=== PATIENT | male | born 1975 | race American Indian/Alaskan Native ===

== ENCOUNTER 2018-02-08 20:14 | Emergency (ER) | payer SELFPAY ==
[2018-02-08] MEDS ORDERED: TORADOL ONE (21:47)
[2018-02-08] MEDS ORDERED: NACL 0.9% 1000 ML 1,000 ML IV ONE (21:47)
[2018-02-08] MEDS ORDERED: TORADOL IV ONE (21:59)
[2018-02-08 22:24] LABS: Basophils % (Auto) 0.3 % (0.0-1.8); Eosinophils # (Auto) 0.1 K/mm3 (0.0-0.4); Eosinophils % (Auto) 0.4 % (0.0-4.3); Hematocrit 42.9 % (35.5-45.6); Hemoglobin 14.9 gm/dl (11.8-15.2); Lymphocytes # (Auto) 1.3 K/mm3 (1.2-5.4); Lymphocytes % (Auto) 9.3 % (13.4-35.0); Mean Corpuscular HGB Conc 35 % (32-34); Mean Corpuscular Hemoglobin 33 pg (28-32); Mean Corpuscular Volume 95 fl (84-94); Monocytes # (Auto) 1.1 K/mm3 (0.0-0.8); Monocytes % (Auto) 8.1 % (0.0-7.3); Platelet Count 309 K/mm3 (140-440); Red Blood Count 4.54 M/mm3 (3.65-5.03); Red Cell Distribution Width 13.4 % (13.2-15.2)
[2018-02-08 22:30] LABS: Bilirubin,Urine NEG (Negative); Blood,Urine MOD (Negative); Color,Urine Yellow (Yellow); Mucus,Urine FEW /HPF; Urobilinogen,Urine < 2.0 mg/dL (<2.0)
[2018-02-08 22:44] LABS: Alanine Aminotransferase 27 units/L (7-56); Albumin 4.1 g/dL (3.9-5); BUN/Creatinine Ratio 17; Blood Urea Nitrogen 15 mg/dL (9-20); Hemolysis Index 10
--- NOTE | 2018-02-09 | Emergency Department Report ---
ED Abdominal Pain HPI - General Chief Complaint: Abdominal Pain Stated Complaint: SIDE PAIN Time Seen by Provider: 02/08/18 23:56 Source: patient Mode of arrival: Ambulatory Limitations: No Limitations - History of Present Illness Initial Comments: Patient is a 42-year-old male that presents emergency room with left flank pain that started this morning and is worsening. Patient states that the pain is a 6 out of 10 at this moment. However when he arrived in the ER was 10 out of 10. Patient states the pain is better due to the medications given. Patient states the pain is better with rest and worse with movement and palpation. Patient denies fever/chills. Patient denies nausea and vomiting. MD Complaint: abdominal pain -: Sudden Location: L flank Radiation: none Migration to: no migration Severity scale (0 -10): 10 Quality: stabbing Improves With: rest Worsens With: movement Associated Symptoms: denies other symptoms. denies: nausea, vomiting, diarrhea , fever, chills, constipation, dysuria, hematemesis, hematochezia, melena, hematuria, anorexia - Related Data Previous Rx's Medication Instructions Recorded Last Taken Type HYDROcodone/APAP 5-325 [[place] 1 each PO Q4HR PRN #15 tablet 02/09/18 Unknown Rx 5/325] Tamsulosin [Flomax] 0.4 mg PO ONCE 10 Days #10 capsule 02/09/18 Unknown Rx Allergies Allergy/AdvReac Type Severity Reaction Status Date / Time No Known Allergies Allergy Unverified 02/08/18 21:47 ED Review of Systems ROS: Stated complaint: SIDE PAIN Other details as noted in HPI Constitutional: denies: chills, fever Eyes: denies: eye pain, eye discharge, vision change ENT: denies: ear pain, throat pain Respiratory: denies: cough, shortness of breath, wheezing Cardiovascular: denies: chest pain, palpitations Endocrine: no symptoms reported Gastrointestinal: abdominal pain. denies: nausea, diarrhea Genitourinary: denies: urgency, dysuria Musculoskeletal: denies: back pain, joint swelling, arthralgia Skin: denies: rash, lesions Neurological: denies: headache, weakness, paresthesias Psychiatric: denies: anxiety, depression Hematological/Lymphatic: denies: easy bleeding, easy bruising ED Past Medical Hx - Past Medical History Previous Medical History?: No - Surgical History Past Surgical History?: No - Family History Family history: no significant - Social History Smoking Status: Never Smoker Substance Use Type: None - Medications Home Medications: Home Medications Medication Instructions Recorded Confirmed Last Taken Type HYDROcodone/APAP 5-325 [[place] 1 each PO Q4HR PRN #15 tablet 02/09/18 Unknown Rx 5/325] Tamsulosin [Flomax] 0.4 mg PO ONCE 10 Days #10 capsule 02/09/18 Unknown Rx ED Physical Exam - General Limitations: No Limitations General appearance: alert, in no apparent distress - Head Head exam: Present: atraumatic, normocephalic - Eye Eye exam: Present: normal appearance - ENT ENT exam: Present: mucous membranes moist - Neck Neck exam: Present: normal inspection - Respiratory Respiratory exam: Present: normal lung sounds bilaterally. Absent: respiratory distress - Cardiovascular Cardiovascular Exam: Present: regular rate, normal rhythm. Absent: systolic murmur, diastolic murmur, rubs, gallop - GI/Abdominal GI/Abdominal exam: Present: soft, tenderness (left flank tenderness and CVA tenderness), normal bowel sounds - Rectal Rectal exam: Present: deferred - Extremities Exam Extremities exam: Present: normal inspection - Back Exam Back exam: Present: normal inspection - Neurological Exam Neurological exam: Present: alert, oriented X3 - Psychiatric Psychiatric exam: Present: normal affect, normal mood - Skin Skin exam: Present: warm, dry, intact, normal color. Absent: rash ED Course Vital Signs 02/08/18 02/08/18 02/09/18 21:15 21:42 06:04 Temperature 98.3 F 98.3 F 99 F Pulse Rate 79 85 88 Respiratory 14 18 16 Rate Blood Pressure 132/78 132/78 Blood Pressure 120/78 [Left] O2 Sat by Pulse 99 99 99 Oximetry - Reevaluation(s) Reevaluation #1: Patient resting in bed comfortably. CT scan is pending 02/09/18 03:09 Reevaluation #2: CT abdomen still pending 02/09/18 04:35 Reevaluation #3: CT scan shows a 2 mm stone in the left ureter causing moderate left hydronephrosis. Incidental finding of a 3 mm stone in the right kidney without obstruction. Patient is stable for discharge. Patient given all results. Discussed plan of care with patient. Patient instructed to follow up with primary care and a urologist in 3-5 days. Patient instructed to take medications as directed. 02/09/18 05:35 ED Medical Decision Making - Lab Data Result diagrams: 02/08/18 22:04 02/08/18 22:04 - Radiology Data Radiology results: report reviewed CT report reviewed. CT positive for a 2 mm stone in the left kidney with moderate left hydronephrosis. - Medical Decision Making She is a 42-year-old male presents emergency room with left flank pain. Patient found to have a left kidney stone with hydronephrosis. Patient is stable for discharge. Patient will be discharged home with discharge instructions. Patient given strict return to ER instructions as well. - Differential Diagnosis renal stone flank pain. gastritis. gastroenteritis Critical care attestation.: If time is entered above; I have spent that time in minutes in the direct care of this critically ill patient, excluding procedure time. ED Disposition Clinical Impression: Flank pain, Calculus of left kidney Disposition: - TO HOME OR SELFCARE Is pt being admited?: No Does the pt Need Aspirin: No Condition: Stable Instructions: Kidney Stones (ED), How to Strain Your Urine (ED), Flank Pain (ED ) Additional Instructions: Patient to follow up with primary care neurologist in 3-5 days. Patient to increase water. Patient to take meds as directed. Patient to return to ER if condition worsens. Patient to rest. Patient to be off work until Sunday morning. Patient to take Tylenol or ibuprofen when necessary for pain Prescriptions: HYDROcodone/APAP 5-325 [[place] 5/325] 1 each PO Q4HR PRN #15 tablet PRN Reason: Pain Tamsulosin [Flomax] 0.4 mg PO ONCE 10 Days #10 capsule Referrals: PRIMARY CARE, [Primary Care Provider] - 3-5 Days Forms: Work/School Release Form(ED) Time of Disposition: 05:40
--- NOTE | 2018-02-09 05:23 | Cat Scan Report ---
FINAL REPORT PROCEDURE: CT ABDOMEN PELVIS WO CON TECHNIQUE: Computerized axial tomography of the abdomen and pelvis was performed without intravenous contrast. This study is performed without intravascular contrast material and its sensitivity for abdominal and pelvic pathology, including neoplasms, inflammation, abscess, free fluid, thrombosis, arterial dissection and infarction, is reduced compared with a contrast enhanced study. HISTORY: abd pain/flank pain COMPARISON: No prior studies are available for comparison. FINDINGS: Visualized lower thorax: No significant abnormality. Liver: Normal size and attenuation. Spleen: Normal size and attenuation. Gallbladder and biliary system: Normal. Pancreas: Normal. Adrenals: Normal. Kidneys: There is a 2 millimeter stone in the distal left ureter causing moderate left hydronephrosis and hydroureter. There is a 3 millimeter stone lower pole the right kidney without obstruction.. GI tract: There is no bowel obstruction, colitis or enteritis. The appendix is normal.. Lymph nodes and mesentery: Normal. Vasculature: Normal. Bladder: Normal. Reproductive organs: Normal. Peritoneum: There is no ascites or free air, abscess or adenopathy.. Musculoskeletal structures: No significant abnormality. Other: None. IMPRESSION: There is a 2 millimeter stone in the distal left ureter causing moderate left hydronephrosis and hydroureter. There is a 3 millimeter stone lower pole the right kidney without obstruction.. There is no bowel obstruction, colitis or enteritis. The appendix is normal.. There is no ascites or free air, abscess or adenopathy.. .
[2018-02-09] MEDS ORDERED: FLOMAX PO ONE (05:34)
[2018-02-09 06:05] VITALS: BP 120/78
== END 2018-02-09 06:11 | disposition home or self-care (01) ==
LOC: ED 20:14
DX: N20.0 Calculus of kidney (principal)
CPT/HCPCS: 36415; 74176; 80053; 81001; 85025; 96374; 99284; J1885

== ENCOUNTER 2020-08-16 04:20 | Observation (INO) | payer SELFPAY ==
--- NOTE | 2020-08-16 04:31 | Emergency Department Report ---
Blank Doc - Documentation Documentation: This is a 45-year-old male that presents with dark-colored stool with blood and abdominal pain. Patient stated that last week he was hit by a forklift his abdomen area. 1- This initial assessment/diagnostic orders/clinical plan/ treatment(s) is/are subject to change based on pt's health status, clinical progression and re- assessment by fellow clinical providers in the ED. Further treatment and workup at subsequent clinical provers discretion. Patient/guardians urged not to elope from ED as their condition may be serious if not clinically assessed and managed. 2-labs 3-UA
[2020-08-16 05:38] LABS: Basophils % (Auto) 0.3 % (0.0-1.8); Eosinophils # (Auto) 0.2 K/mm3 (0.0-0.4); Eosinophils % (Auto) 3.1 % (0.0-4.3); Hematocrit 43.6 % (35.5-45.6); Hemoglobin 14.9 gm/dl (11.8-15.2); Lymphocytes # (Auto) 2.4 K/mm3 (1.2-5.4); Lymphocytes % (Auto) 34.6 % (13.4-35.0); Mean Corpuscular HGB Conc 34 % (32-34); Mean Corpuscular Volume 95 fl (84-94); Monocytes # (Auto) 0.6 K/mm3 (0.0-0.8); Monocytes % (Auto) 8.8 % (0.0-7.3); Platelet Count 292 K/mm3 (140-440); Red Blood Count 4.58 M/mm3 (3.65-5.03); Red Cell Distribution Width 13.2 % (13.2-15.2)
[2020-08-16 06:01] LABS: Bilirubin,Urine NEG (Negative); Blood,Urine NEG (Negative); Color,Urine Straw (Yellow); Mucus,Urine FEW /HPF; Protein,Urine <15 mg/dL mg/dL (Negative); Urobilinogen,Urine < 2.0 mg/dL (<2.0)
[2020-08-16 06:02] LABS: Alanine Aminotransferase 36 units/L (7-56); Albumin 3.7 g/dL (3.9-5); Blood Urea Nitrogen 11 mg/dL (9-20); Hemolysis Index 18
[2020-08-16 06:06] LABS: BUN/Creatinine Ratio 16
--- NOTE | 2020-08-16 11:29 | Emergency Department Report ---
ED Abdominal Pain HPI - General Chief Complaint: Abdominal Pain Stated Complaint: BLOOD IN STOOL/HURTS BETWEEN LEGS Time Seen by Provider: 08/16/20 04:30 Source: patient Mode of arrival: Ambulatory Limitations: No Limitations - History of Present Illness Initial Comments: Patient is a 45-year-old male presents emergency room with complaints of abdominal pain that has been occurring since 08/08/2020. He states that he was involved in an incident at work. He states that he got pinned between a table in a wall as a forklift hit the table. He states since then he has had abdominal pain which radiates to his back. He states he has been seen in another emergency room in [place] and was told that everything was normal. He states he then saw a Worker's Comp. doctor and was advised everything was normal. He presents today due to seeing blood in his stool twice yesterday and states one episode he had large clots. He denies any nausea, vomiting, hematemesis, numbness, weakness, bowel or bladder incontinence. No past medical history. No allergies medic ations. - Related Data Previous Rx's Medication Instructions Recorded Last Taken Type HYDROcodone/APAP 5-325 [[place] 1 each PO Q4HR PRN #15 tablet 02/09/18 Unknown Rx 5/325] Tamsulosin [Flomax] 0.4 mg PO ONCE 10 Days #10 capsule 02/09/18 Unknown Rx Allergies Allergy/AdvReac Type Severity Reaction Status Date / Time No Known Allergies Allergy Unverified 02/08/18 21:47 ED Review of Systems ROS: Stated complaint: BLOOD IN STOOL/HURTS BETWEEN LEGS Other details as noted in HPI Comment: All other systems reviewed and negative ED Past Medical Hx - Past Medical History Previous Medical History?: No - Surgical History Past Surgical History?: No - Social History Smoking Status: Never Smoker Substance Use Type: None - Medications Home Medications: Home Medications Medication Instructions Recorded Confirmed Last Taken Type HYDROcodone/APAP 5-325 [[place] 1 each PO Q4HR PRN #15 tablet 02/09/18 Unknown Rx 5/325] Tamsulosin [Flomax] 0.4 mg PO ONCE 10 Days #10 capsule 02/09/18 Unknown Rx ED Physical Exam - General Limitations: No Limitations General appearance: alert, in no apparent distress - Head Head exam: Present: atraumatic, normocephalic - Eye Eye exam: Present: normal appearance - ENT ENT exam: Present: mucous membranes moist - Neck Neck exam: Present: normal inspection, full ROM. Absent: tenderness - Respiratory Respiratory exam: Present: normal lung sounds bilaterally. Absent: respiratory distress, wheezes, rales, rhonchi, stridor, chest wall tenderness, accessory muscle use, decreased breath sounds, prolonged expiratory - Cardiovascular Cardiovascular Exam: Present: regular rate, normal rhythm, normal heart sounds. Absent: systolic murmur, diastolic murmur, rubs, gallop - GI/Abdominal GI/Abdominal exam: Present: soft, tenderness (mild generalized abd pain, no crepitus, no ecchymosis), normal bowel sounds. 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 Absent: paraspinal tenderness, vertebral tenderness - Neurological Exam Neurological exam: Present: alert, oriented X3, CN II-XII intact, normal gait. Absent: motor sensory deficit - Psychiatric Psychiatric exam: Present: normal affect, normal mood - Skin Skin exam: Present: warm, dry, intact ED Course Vital Signs 08/16/20 16:31 Temperature 98.0 F Pulse Rate 71 Respiratory 16 Rate Blood Pressure 151/114 O2 Sat by Pulse 100 Oximetry - Consultations Consultation #1: 08/16/20 13:[address] Ori Michael, GI regarding patient history exam and studies, he advised to admit to hospitalist service and he will consult on patient 08/16/20 13:[address] Snyder, ER attending who agrees with admission 08/16/20 14:[address] Ulloa, he is going to evaluate patient 08/16/20 15:13 Dr. Ulloa, hospitalist will accept and resume care of patient, will admit to hospitalist service ED Medical Decision Making - Lab Data Result diagrams: 08/16/20 05:02 08/16/20 05:02 Lab Results 08/16/20 08/16/20 08/16/20 Range/Units 05:02 05:02 05:16 WBC 6.8 (4.5-11.0) K/mm3 RBC 4.58 (3.65-5.03) M/mm3 Hgb 14.9 (11.8-15.2) gm/dl Hct 43.6 (35.5-45.6) % MCV 95 H (84-94) fl MCH 33 H (28-32) pg MCHC 34 (32-34) % RDW 13.2 (13.2-15.2) % Plt Count 292 (140-440) K/mm3 Lymph % (Auto) 34.6 (13.4-35.0) % [place]age % (Auto) 8.8 H (0.0-7.3) % Eos % (Auto) 3.1 (0.0-4.3) % Baso % (Auto) 0.3 (0.0-1.8) % Lymph # (Auto) 2.4 (1.2-5.4) K/mm3 [place] # (Auto) 0.6 (0.0-0.8) K/mm3 Eos # (Auto) 0.2 (0.0-0.4) K/mm3 Baso # (Auto) 0.0 (0.0-0.1) K/mm3 Seg Neutrophils % 53.2 (40.0-70.0) % Seg Neutrophils # 3.6 (1.8-7.7) K/mm3 Sodium 138 (137-145) mmol/L Potassium 4.7 (3.6-5.0) mmol/L Chloride 106.1 (98-107) mmol/L Carbon Dioxide 23 (22-30) mmol/L Anion Gap 14 mmol/L BUN 11 (9-20) mg/dL Creatinine 0.7 L (0.8-1.3) mg/dL Estimated GFR > 60 ml/min BUN/Creatinine Ratio 16 % Glucose 85 (75-100) mg/dL Calcium 9.0 (8.4-10.2) mg/dL Total Bilirubin 0.20 (0.1-1.2) mg/dL AST 29 (5-40) units/L ALT 36 (7-56) units/L Alkaline Phosphatase 79 (35-129) units/L Total Protein 6.4 (6.3-8.2) g/dL Albumin 3.7 L (3.9-5) g/dL Albumin/Globulin Ratio 1.4 % Lipase 24 (13-60) units/L Urine Color Straw (Yellow) Urine Turbidity Clear (Clear) Urine pH 5.0 (5.0-7.0) Ur Specific Normal 1.015 (1.003-1.030) Urine Protein <15 mg/dl (Negative) mg/dL Urine Glucose (UA) Neg (Negative) mg/dL Urine Ketones Neg (Negative) mg/dL Urine Blood Neg (Negative) Urine Nitrite Neg (Negative) Urine Bilirubin Neg (Negative) Urine Urobilinogen < 2.0 (<2.0) mg/dL Ur Leukocyte Esterase Neg (Negative) Urine WBC (Auto) 2.0 (0.0-6.0) /HPF Urine RBC (Auto) 1.0 (0.0-6.0) /HPF Urine Mucus Few /HPF - Radiology Data Radiology results: report reviewed CT abd pelvis with IV contrast: no significant abnormality - Medical Decision Making Patient is a 45-year-old male presents emergency room with complaints of abdominal pain that has been occurring since 08/08/2020. He states that he was involved in an incident at work. He states that he got pinned between a table in a wall as a forklift hit the table. He states since then he has had abdominal pain which radiates to his back. He states he has been seen in another emergency room in [place] and was told that everything was normal. He states he then saw a Worker's Comp. doctor and was advised everything was normal. He presents today due to seeing blood in his stool twice yesterday and states one episode he had large clots. He denies any nausea, vomiting, hematemesis, numbness, weakness, bowel or bladder incontinence. No past medical history. No allergies medications. Initial vitals with elevated blood pressure which improved upon repeat. 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 stool is melanotic. labs are normal. CT abd pelvis with IV contrast: no significant abnormality. Spoke with Dr. Ori Michael, GI regarding patient history exam and studies, he advised to admit to hospitalist service and he will consult on patient. Discussed case with Dr. Snyder, ER attending who agrees with admission. Dr. Ulloa, hospitalist will accept and resume care of patient, will admit to hospitalist service. - Differential Diagnosis trauma, GI bleed, spleen/liver laceration, erosive PUD Critical care attestation.: If time is entered above; I have spent that time in minutes in the direct care of this critically ill patient, excluding procedure time. ED Disposition Clinical Impression: GI bleed Qualifiers: GI bleed type/associated pathology: melena Qualified Code(s): K92.1 - Melena Abdominal pain Qualifiers: Abdominal location: generalized Qualified Code(s): R10.84 - Generalized abdominal pain Disposition: DC-09 OP ADMIT IP TO THIS HOSP Is pt being admited?: Yes Does the pt Need Aspirin: No Condition: Fair Time of Disposition: 14:01
--- NOTE | 2020-08-16 12:46 | Cat Scan Report ---
CT ABDOMEN AND PELVIS WITH CONTRAST HISTORY: Abdominal pain, bloody stool COMPARISON: Prior CT 02/09/2018 TECHNIQUE: Routine abdominal and pelvic CT exam performed following intravenous contrast administrat ion.. All CT scans at this location are performed using CT dose reduction for ALARA by means of autom ated exposure control. FINDINGS: CT ABDOMEN: Lung Bases: No significant abnormality. Liver: No significant abnormality. Biliary: No significant abnormality. Spleen: No significant abnormality. Unenlarged. Pancreas: No significant abnormality. Adrenals: No significant abnormality. Kidneys: No significant abnormality. Lymphatics: No lymphadenopathy. Vasculature: No significant abnormality. Bowel/Peritoneum: No significant abnormality. No free air. No free fluid. Normal appendix. CT PELVIC: : No significant abnormality. Lymphatics: No lymphadenopathy. Osseous Structures: No aggressive appearing osseous lesions. Additional Findings: None IMPRESSION: 1. No significant abnormality. Signer Name: Izaiah Mcclendon MD Signed: 08/16/2020 12:42 PM Workstation Name: [id number]
[2020-08-16] MEDS ORDERED: ACETAMINOPHEN 325 MG TAB PO PRN ×2 (16:12→20:43)
[2020-08-16] MEDS ORDERED: ONDANSETRON 4 MG/2 ML INJ IV PRN ×2 (16:12→20:43)
--- NOTE | 2020-08-16 20:41 | Progress Note ---
Assessment and Plan - Patient Problems (1) GI bleed Current Visit: Yes Status: Acute Qualifiers: GI bleed type/associated pathology: melena Qualified Code(s): K92.1 - Melena Plan to address problem: Patient probably has peptic ulcer disease/severe gastritis Take Motrin. Patient needs GI consult. IV Protonix drip in the meantime. Check hemoglobin and hematocrit every 8 hours. (2) Abdominal pain Current Visit: Yes Status: Acute Qualifiers: Abdominal location: generalized Qualified Code(s): R10.84 - Generalized abdominal pain Plan to address problem: Improved Secondary to trauma No internal organ laceration or bleeding (3) DVT prophylaxis Current Visit: Yes Status: Acute Plan to address problem: On SCDs and GI prophylaxis Subjective Date of service: 08/16/20 Principal diagnosis: Black stools for 1 day Interval history: 45-year-old with no significant past medical history comes in for abdominal pain since 08/08/2020. Patient patient has dark stools since yesterday. Patient was hit by a forklift on 08/08/2020 when he was checked for any abdominal injury. No abdominal injury. No patient has been having black stools since yesterday. Patient took 2 Motrin's prior to the lab. No lightheadedness no syncope. Occult blood was positive on the stool check. - Past Medical History Previous Medical History?: No - Surgical History Past Surgical History?: No - Social History Smoking Status: Never Smoker Substance Use Type: None - Medications Home Medications: Home Medications Medication Instructions Recorded Confirmed Last Taken Type HYDROcodone/APAP 5-325 [[place] 1 each PO Q4HR PRN #15 tablet 02/09/18 Unknown Rx 5/325] Tamsulosin [Flomax] 0.4 mg PO ONCE 10 Days #10 capsule 02/09/18 Unknown Rx Review of Systems ROS: Constitutional no weight loss or weight gain no fever or chills HEENT no sore throat no post nasal drip no diplopia Neck no neck stiffness no lymph gland enlargement Chest and lungs no shortness of breath cough or wheezing CVS no chest pain no diaphoresis no palpitations GI black tarry stools Musculoskeletal system no muscle pains no joint pains 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 Skin no rash no itching Psychiatric no depression no homicidal or suicidal tendencies Hematologic no lymphedema or bruising Endocrine no polydipsia no polyuria no cold intolerance no heat intolerance Objective - Constitutional Vitals: Vital Signs - 12hr 08/16/20 08/16/20 16:31 19:29 Temperature 98.0 F 98.0 F Pulse Rate 71 74 Respiratory 16 16 Rate Blood Pressure 151/114 130/77 O2 Sat by Pulse 100 98 Oximetry General appearance: Present: no acute distress, well-nourished - EENT Eyes: PERRL, EOM intact ENT: hearing intact, clear oral mucosa Ears: bilateral: normal - Neck Neck: supple, normal ROM - Respiratory Respiratory effort: normal Respiratory: bilateral: CTA - Breasts Breasts: normal - Cardiovascular Heart rate: 78 Rhythm: regular Heart Sounds: Present: S1 & S2. Absent: gallop, rub Extremities: pulses intact, No edema, normal color, Full ROM - Gastrointestinal General gastrointestinal: Present: soft, non-tender, non-distended, normal bowel sounds - Genitourinary Male genitourinary: normal - Integumentary Integumentary: clear, warm, dry - Musculoskeletal Musculoskeletal: 1, strength equal bilaterally - Neurologic Neurologic: moves all extremities - Psychiatric Psychiatric: memory intact, appropriate mood/affect, intact judgment & insight - Labs CBC & Chem 7: 08/16/20 21:43 08/16/20 05:02 Labs: Abnormal lab results 08/16/20 08/16/20 Range/Units 05:02 05:02 MCV 95 H (84-94) fl MCH 33 H (28-32) pg [place] % (Auto) 8.8 H (0.0-7.3) % Creatinine 0.7 L (0.8-1.3) mg/dL Albumin 3.7 L (3.9-5) g/dL
[2020-08-16] MEDS ORDERED: METOCLOPRAMIDE 10 MG/2 ML INJ IV PRN (20:43)
[2020-08-16] MEDS ORDERED: HYDROmorphone 1 MG/1 ML INJ IV PRN (20:43)
[2020-08-16] MEDS ORDERED: MORPHINE 2 MG/1 ML INJ IV PRN (20:43)
[2020-08-16] MEDS: D5W/0.9% NACL 1,000 ML IV SCH (21:31)
[2020-08-16] MEDS: PANTOPRAZOLE 80 MG in SODIUM CHLORIDE 0.9% 100 ML IV SCH (21:31)
[2020-08-16 21:55] LABS: Hematocrit 44.1 % (35.5-45.6); Hemoglobin 14.8 gm/dl (11.8-15.2)
[2020-08-17] MEDS: PANTOPRAZOLE 80 MG in SODIUM CHLORIDE 0.9% 100 ML IV SCH (07:30)
[2020-08-17] MEDS: D5W/0.9% NACL 1,000 ML IV SCH (07:31)
[2020-08-17 08:23] LABS: Basophils % (Auto) 0.3 % (0.0-1.8); Eosinophils # (Auto) 0.2 K/mm3 (0.0-0.4); Hematocrit 44.1 % (35.5-45.6); Hemoglobin 14.8 gm/dl (11.8-15.2); Lymphocytes # (Auto) 1.7 K/mm3 (1.2-5.4); Lymphocytes % (Auto) 31.1 % (13.4-35.0); Mean Corpuscular HGB Conc 34 % (32-34); Mean Corpuscular Volume 96 fl (84-94); Monocytes # (Auto) 0.5 K/mm3 (0.0-0.8); Monocytes % (Auto) 8.8 % (0.0-7.3); Platelet Count 265 K/mm3 (140-440); Red Blood Count 4.58 M/mm3 (3.65-5.03); Red Cell Distribution Width 13.3 % (13.2-15.2)
[2020-08-17 08:41] LABS: Alanine Aminotransferase 36 units/L (7-56); Albumin 3.4 g/dL (3.9-5); Blood Urea Nitrogen 8 mg/dL (9-20); Calcium 8.8 mg/dL (8.4-10.2); Hemolysis Index 7
[2020-08-17 08:45] LABS: BUN/Creatinine Ratio 11
[2020-08-17] MEDS ORDERED: SODIUM CHLORIDE 0.9% 1000 ML 1,000 ML IV SCH (10:00)
--- NOTE | 2020-08-17 11:53 | Anesthesia Day of Surgery ---
Anesthesia Day of Surgery - Day of Surgery Patient Examined: Yes Patient H&P Reviewed: Yes Patient is NPO: Yes
--- NOTE | 2020-08-17 11:53 | Anesthesia Consultation ---
Anesthesia Consult and Med Hx Date of service: 08/17/20 - Airway Anesthetic Teeth Evaluation: Good ROM Head & Neck: Adequate Mental/Hyoid Distance: Adequate Mallampati Class: Class II Intubation Access Assessment: Probably Good - Pre-Operative Health Status ASA Pre-Surgery Classification: ASA2 Proposed Anesthetic Plan: MAC - Gastrointestinal Hx Ulcer: Yes (blood in stool) - Endocrine Hx Renal Disease: No (BPH)
[2020-08-17] MEDS ORDERED: propofoL 200 MG/20 ML VIAL IV ONE (12:30)
--- NOTE | 2020-08-17 12:54 | Post Operative Note ---
Pre-op diagnosis: gi bleed Post-op diagnosis: same Findings: EGD: small hiatal hernia - 8-9 mm white based ulcer antrum - mild gastritis (bx's) - negative other Procedure: egd w/ bx Anesthesia: MAC Surgeon: CEDRIC CARRASQUILLO Estimated blood loss: none Pathology: list Specimen disposition: to lab Condition: stable Disposition: floor
--- NOTE | 2020-08-17 13:01 | Operative Report ---
INDICATION: 1. Rectal bleeding. 2. Dark stools. MEDICATIONS: Propofol per [employer]. COMPLICATIONS: None. DESCRIPTION OF PROCEDURE: The patient brought to procedure suite. The patient had the procedure, discussed with him at length. All risks, complications, and benefits discussed after which the patient signed for the procedure performed. The patient was placed in left lateral decubitus position. Mouth block placed in the patient's oral cavity. After adequate sedation medication as above, endoscope placed in mouth and brought to level of the second portion of duodenum. Retroflexion view performed. The patient's vital signs remained stable throughout the procedure. FINDINGS: Small hiatal hernia at GE junction 38 cm from the gums. Esophagus otherwise appeared to be normal. There was 8-9 mm white base ulcer noted in the gastric antrum without significant bleeding stigmata. Biopsies were taken of the antrum and sent to pathology. Remaining stomach otherwise appeared to be normal. Duodenum appeared to be normal. Retroflexion view performed in the stomach showed no other pathology other than noted above. The patient tolerated the procedure well. No complications during the procedure. IMPRESSION: 1. Hiatal hernia. 2. Otherwise, normal esophagus. 3. Single ulcer with signs of healing noted with no bleeding stigmata. 4. Gastritis, biopsies performed. 5. Otherwise, normal EGD. RECOMMENDATIONS: 1. Follow up biopsy results. 2. If H. pylori positive, treat. 3. PPI daily. 4. Advance diet. 5. Okay to discharge from GI standpoint. Follow up as an outpatient. JOB# [id number] [facility]
--- NOTE | 2020-08-17 13:03 | Consultation ---
REFERRING PHYSICIAN: Torito Ulola MD INDICATIONS: 1. Anemia. 2. Abdominal pain. HISTORY OF PRESENT ILLNESS: The patient is a 45-year-old black male being seen by GI for abdominal pain and black stools. The patient reports that he recently had a job-related incident where he had a forklift hit a table that hit him in the abdominal area. He reports this occurred in [place]. The patient reports he had evaluation including a CT scan, which showed no pathology. The patient reports he had been taking some NSAIDs over recent days. The patient reports he had 2 bouts of bloody stools yesterday. He reports dark stools. Denies any hematemesis. Denies any weight loss. The patient subsequently came to the Emergency Room where he had a CT scan, which was negative and subsequently admitted and GI consulted. Again, of note, since his accident recently, the patient has been taking NSAIDs p.r.n. PAST MEDICAL HISTORY: Negative. MEDICATIONS: See chart. ALLERGIES: No known drug allergies. SOCIAL HISTORY: Denies alcohol, tobacco or drug abuse. FAMILY HISTORY: Negative for colon cancer, IBD, or liver disease. REVIEW OF SYSTEMS: GENERAL: Reports some weakness. HEENT: No visual complaints or tinnitus. PULMONARY: No shortness of breath, cough or chest pain. GASTROINTESTINAL: Reports black stools. All points of 13-point review of systems otherwise negative. PHYSICAL EXAMINATION: VITAL SIGNS: Temperature of 98.1, pulse 65, respiration 18, and blood pressure 145/90. GENERAL: Fairly nourished with no acute distress. HEENT: Pupils are equal, round and reactive. PULMONARY: Clear. CARDIOVASCULAR: Regular rhythm. Normal S1, S2. ABDOMEN: Palpable, soft. SKIN: No obvious rashes. LABORATORY DATA: Pertinent for white count of 6.8, hemoglobin and hematocrit of 14.9 and 43.6, platelet count of 292. Chem-7 within normal limits. LFTs within normal limits. CT scan of abdomen and pelvis with contrast performed on 08/16/2020 showed no significant GI pathology. ASSESSMENT AND PLAN: A 45-year-old black male with a recent accident when he had some trauma after a forklift hit a table that hit him, now presents after taking NSAIDs recently with some dark stools. The patient's hemoglobin and hematocrit is stable. We do want to rule out upper GI pathology. PLAN: 1. PPI daily. 2. Follow hematocrit and transfuse as needed. 3. Plan EGD in a.m. JOB# [id number] [facility] MTDD
--- NOTE | 2020-08-17 13:24 | Post Anesthesia Evaluation ---
- Post Anesthesia Evaluation Patient Participated: Yes Airway Patent: Yes Stable Respiratory Function: Yes Nausea/Vomiting: No Temp > 96.8F: Yes Pain Manageable: Yes Adequeate Hydration: Yes Anesthesia Complications: No
[2020-08-17 13:54] VITALS: BP 128/74
--- NOTE | 2020-08-17 15:30 | Discharge Summary ---
Providers - Providers Date of Admission: 08/16/20 16:12 Attending physician: MAX LOWE MD 08/16/20 13:58 Consult to Physician [CONS] Stat Comment: Consulting Provider: CEDRIC CARRASQUILLO Physician Instructions: Reason For Exam: GI bleed Primary care physician: [employer] Hospitalization Reason for admission: Rectal bleed Condition: Stable Hospital course: 45-year-old with no significant past medical history comes in for abdominal pain since 08/08/2020. Patient patient has dark stools since yesterday. Patient was hit by a forklift on 08/08/2020 when he was checked for any abdominal injury. No abdominal injury. No patient has been having black stools since yesterday. Patient took 2 Motrin's prior to the lab. No lightheadedness no syncope. Occult blood was positive on the stool check. Patient underwent GI colonoscopy and noted, EGD: small hiatal hernia - 8-9 mm white based ulcer antrum - mild gastritis (bx's) - negative other He was cleared By GI for discharge (1) GI bleed (2) Abdominal pain ( 3) Hiatal Hernia (4) Antrum Ulcer Disposition: TO HOME OR SELFCARE Time spent for discharge: 35 mins Core Measure Documentation - Palliative Care Palliative Care/ Comfort Measures: Not Applicable - Core Measures Any of the following diagnoses?: none Exam - Physical Exam Narrative exam: VITAL SIGNS: Reviewed. GENERAL: The patient appears normally developed, Vital signs as documented. HEAD: No signs of head trauma. EYES: Pupils are equal. Extraocular motions intact. EARS: Hearing grossly intact. MOUTH: Oropharynx is normal. NECK: No adenopathy, no JVD. CHEST: Chest with clear breath sounds bilaterally. No wheezes, rales, or rhonchi. CARDIAC: Regular rate and rhythm. S1 and S2, without murmurs, gallops, or rubs. VASCULAR: No Edema. Peripheral pulses normal and equal in all extremities. ABDOMEN: Soft, non tender and non distended. No rebound or guarding, and no masses palpated. Bowel Sounds normal. MUSCULOSKELETAL: Good range of motion of all major joints. Extremities without clubbing, cyanosis or edema. NEUROLOGIC EXAM: Alert and oriented x 3 No focal sensory or strength deficits. Speech normal. Follows commands. PSYCHIATRIC: Mood normal. SKIN: detail exam as documented in skin assessment - Constitutional Vitals: Temp Pulse Resp BP Pulse Ox 97.7 F 79 12 128/74 97 08/17/20 12:55 08/17/20 13:05 08/17/20 13:05 08/17/20 13:05 08/17/20 13:05 Plan Activity: advance as tolerated, fall precautions Diet: low fat Special Instructions: record daily weights, record daily BP diary Additional Instructions: AVOID NSAIDS Follow up with: CEDRIC CARRASQUILLO MD [Staff Physician] - 7 Days PRIMARY CARE, [Primary Care Provider] - 3-5 Days Forms: Work/School Release Form Prescriptions: Bindu Araujo [Hemorrhoidal Medicated Wipes] 1 each TP TID #30 med..pad HYDROcodone/APAP 5-325 [[place] 5-325 mg TAB] 1 each PO Q4HR PRN #15 tablet PRN Reason: Pain
== END 2020-08-17 15:00 | disposition home or self-care (01) ==
LOC: ED 04:20 → 3A 16:12 → 4A 17:31
PROVIDERS: ADMIT Internal Medicine; ATTEND Internal Medicine
DX: K92.2 Gastrointestinal hemorrhage, unspecified (principal); K92.1 Melena; D64.9 Anemia, unspecified; K44.9 Diaphragmatic hernia without obstruction or gangrene; Z79.899 Other long term (current) drug therapy
CPT/HCPCS: 36415; 43239; 74177; 80053; 81001; 82271; 83036; 83690; 85014; 85018; 85025; 88305; 88342; 96365; 96366; 96375; 99285; C9113; G0378; J2270; J2405; J2704; J7042; Q9967